=== PATIENT | female | born 1985 | race Caucasian/White ===

== ENCOUNTER → 2020-07-05 10:00 | Outpatient (CLI) | payer SELFPAY ==
[2020-07-05 08:49] VITALS: BMI 23.4
[2020-07-05 10:18] LABS: Absolute Lymphocyte Count 1.49 X10^3/uL (0.83-4.51); Basophil# 0.07 X10^3/uL; Basophil% 0.7 % (0-1); Eosinophil# 0.05 X10^3/uL; Eosinophils% 0.5 % (0-5); Hematocrit 40.5 % (37-47); Hemoglobin 13.4 g/dL (12.0-15.0); Lymphocyte # 1.49 X10^3/ul (4.0); Lymphocyte % 14.4 % (19-41); Mean Corp Hgb Conc 33.1 g/dL (32-36); Mean Corpuscular Volume 90.6 fL (81-99); Mean Platelet Vol. 8.5 fl (6.2-12.0); Monocyte# 0.68 X10^3/uL; Monocyte% 6.6 % (0-10); NRBC Flagged by Analyzer 0 % (0-5); Neutrophil # 8.02 X10^3/uL (2.7-7.7); Neutrophil % 77.4 % (47-70); Platelet Count 371 K/mm3 (150-450); RBC Distribution Width CV 12.7 % (11.6-14.6); RBC Distribution Width SD 41.8 fl (35.1-43.9); Red Blood Count 4.47 M/mm3 (4.2-5.4); White Blood Count 10.4 K/mm3 (4.4-11.0)
[2020-07-05 11:22] LABS: HIV - WCH Non-Reactive (Nonreactive); Hepatitis B Surface Antigen Non-Reactive (Nonreactive); Hepatitis C Antibody Non-Reactive (Nonreactive); Rubella IgG Reactive (Nonreactive)
[2020-07-05 18:49] LABS: Amphetamine Urine VISTA NEGATIVE (<1000 ng/mL); Barbiturate Urine VISTA NEGATIVE (< 200 ng/mL); Benzodiazepine Urine VISTA NEGATIVE (< 200 ng/mL); Cocaine Urine VISTA NEGATIVE (< 300 ng/mL); Ecstacy Urine VISTA NEGATIVE (< 500 ng/mL); Methadone Urine VISTA NEGATIVE (< 300 ng/mL); PCP Urine VISTA NEGATIVE (< 25 ng/mL); THC Urine VISTA NEGATIVE (< 50 ng/mL); Vista UDS pH Range 6
[2020-07-09 08:08] LABS: Chlamydia By Nucleic Acid AMP Negative (Negative)
[2020-07-09 11:13] LABS: Gonococcus By Nucleic Acid AMP Negative (Negative)
[2020-07-10 16:28] LABS: HPV APTIMA, High Risk Negative (Negative)
[2020-07-11 02:38] LABS: Rapid Plasmin Reagin (RPR) NONREACTIVE (NONREACTIVE)
== END ==
PROVIDERS: Referring Provider Obstetrics & Gynecology; Visit Provider Obstetrics & Gynecology
DX: O09.90 Supervision of high risk pregnancy, unspecified, unspecified trimester (principal); Z12.4 Encounter for screening for malignant neoplasm of cervix
CPT/HCPCS: 36415; 80307; 85025; 86592; 86703; 86762; 86803; 86850; 86900; 86901; 87086; 87088; 87340; 87491; 87591; 87624; 88175; G0145

== ENCOUNTER → 2020-09-20 07:41 | Outpatient (CLI) | payer SELFPAY ==
[2020-08-09 09:19] VITALS: BMI 24.0
[2020-08-30 09:51] VITALS: BMI 24.4
--- NOTE | 2020-09-20 08:13 | US_ITS ---
STUDY: SECOND AND THIRD TRIMESTER OBSTETRICAL ULTRASOUND REASON FOR EXAM: Female, 35 years old anatomy LMP: 04/26/2020. TECHNIQUE: Transabdominal TECHNICAL QUALITY: Adequate. PRIOR ULTRASOUND: None. FINDINGS: There is a single intrauterine fetus. The fetus is in a cephalic presentation. There is demonstrated cardiac activity with a heart rate of 140 bpm. There is a normal amniotic fluid volume. The largest amniotic fluid pocket measures 6.13 cm. The amniotic fluid index (MICHAEL) is within normal limits. The placenta is anterior in location and is not low lying. There are Grade 0 placental changes. The cervix measures 3.54 cm in length. The adnexal regions are not visualized. BIOMETRY: BPD: 4.7 cm: 20 weeks, 1 days HC: 17.77 cm: 20 weeks, 1 days AC: 16.08 cm: 21 weeks, 1 days FL: 3.35 cm: 20 weeks, 3 days CI: 74% FL/BPD: 71% FL/HC: FL/AC: 21% HC/AC: 1.11 age by current US: 20 weeks, 2 days. ZACH by current US: 02/05/2021. Estimated weight: 379 grams, +/- 57 grams, 36 %. Age by LMP: 21 weeks, 0 days. ZACH by LMP: 01/31/2021. ANATOMY: Gender: Male Cranium: Normal lateral ventricles. Normal choroid plexus. Normal cerebellum. Normal cisterna magna. Normal face, nose and lips. Chest: Normal 4-chamber heart. Abdomen/Pelvis: Normal diaphragm. Normal stomach. Normal abdominal wall. Normal cord insertion. Normal 3 vessel cord. Normal kidneys. Normal bladder. Spine: Normal cervical spine. Normal thoracic spine. Normal lumbar spine. Normal sacrum. Extremities: Normal bilateral upper extremities. Normal bilateral lower extremities. US/OB Anatomy Scan IMPRESSION: Single live intrauterine gestation with mean gestational age of 20 weeks and 2 days. Electronically Signed: Moe Mallory MD at 12:30 EST , Service support ,
== END ==
PROVIDERS: Referring Provider Obstetrics & Gynecology; Visit Provider Obstetrics & Gynecology
DX: O09.90 Supervision of high risk pregnancy, unspecified, unspecified trimester (principal); Z3A.21 21 weeks gestation of pregnancy
CPT/HCPCS: 76805

== ENCOUNTER → 2020-10-25 10:34 | Outpatient (CLI) | payer SELFPAY ==
[2020-10-25 10:02] VITALS: BMI 25.7
[2020-10-25 11:20] LABS: Absolute Lymphocyte Count 1.61 X10^3/uL (0.83-4.51); Absolute Neutrophil Count 8.2 X10^3/uL (2.0-7.7); Basophil# 0.06 X10^3/uL; Basophil% 0.6 % (0-1); Eosinophil# 0.08 X10^3/uL; Eosinophils% 0.8 % (0-5); Hematocrit 36.9 % (37-47); Hemoglobin 12.1 g/dL (12.0-15.0); Lymphocyte # 1.61 X10^3/ul (4.0); Lymphocyte % 15.2 % (19-41); Mean Corp Hgb Conc 32.8 g/dL (32-36); Mean Corpuscular Volume 91.6 fL (81-99); Mean Platelet Vol. 8.6 fl (6.2-12.0); Monocyte# 0.63 X10^3/uL; NRBC Flagged by Analyzer 0 % (0-5); Neutrophil # 8.15 X10^3/uL (2.7-7.7); Neutrophil % 76.9 % (47-70); Platelet Count 319 K/mm3 (150-450); RBC Distribution Width CV 12.3 % (11.6-14.6); RBC Distribution Width SD 40.9 fl (35.1-43.9); Red Blood Count 4.03 M/mm3 (4.2-5.4); White Blood Count 10.6 K/mm3 (4.4-11.0)
[2020-10-25 11:29] LABS: Glucose Challenge Gest 1H 50g 93 mg/dL (70-140)
== END ==
PROVIDERS: Referring Provider Obstetrics & Gynecology; Visit Provider Obstetrics & Gynecology
DX: O09.90 Supervision of high risk pregnancy, unspecified, unspecified trimester (principal); Z3A.00 Weeks of gestation of pregnancy not specified
CPT/HCPCS: 36415; 82950; 85025

== ENCOUNTER → 2021-01-03 10:19 | Outpatient (CLI) | payer SELFPAY ==
[2021-01-03 09:41] VITALS: BMI 26.8
== END ==
PROVIDERS: Referring Provider Obstetrics & Gynecology; Visit Provider Obstetrics & Gynecology
DX: O09.90 Supervision of high risk pregnancy, unspecified, unspecified trimester (principal); Z3A.00 Weeks of gestation of pregnancy not specified
CPT/HCPCS: 87081

== ENCOUNTER 2021-01-18 23:18 | Inpatient (IN) | payer SELFPAY ==
[2020-07-05 08:49] VITALS: BMI 23.4
[2021-01-17 09:22] VITALS: BMI 26.8
[2021-01-18 23:23] VITALS: BMI 27.6
[2021-01-18 23:27] VITALS: BP 151/63; PULSE 85; TEMP 37.2; O2SAT 100
[2021-01-18] MEDS: Lactated Ringers 500 ML 999 ML IV (23:33)
[2021-01-18 23:44] LABS: Absolute Lymphocyte Count 2.62 X10^3/uL (0.83-4.51); Absolute Neutrophil Count 11.8 X10^3/uL (2.0-7.7); Basophil# 0.07 X10^3/uL; Basophil% 0.4 % (0-1); Eosinophil# 0.08 X10^3/uL; Eosinophils% 0.5 % (0-5); Hematocrit 35.8 % (37-47); Hemoglobin 11.8 g/dL (12.0-15.0); Lymphocyte # 2.62 X10^3/ul (0.83-4.51); Lymphocyte % 16.7 % (19-41); Mean Platelet Vol. 9.4 fl (6.2-12.0); Monocyte# 1.02 X10^3/uL; Monocyte% 6.5 % (0-10); NRBC Flagged by Analyzer 0 % (0-5); Neutrophil # 11.76 X10^3/uL (2.7-7.7); Neutrophil % 75.1 % (47-70); Platelet Count 334 K/mm3 (150-450); RBC Distribution Width CV 12.7 % (11.6-14.6); RBC Distribution Width SD 38.7 fl (35.1-43.9); Red Blood Count 4.21 M/mm3 (4.2-5.4); White Blood Count 15.7 K/mm3 (4.4-11.0)
[2021-01-19] VITALS (16 sets, daily range): BP systolic 98–126; BP diastolic 54–75; PULSE 68–91; RESP 14–18; TEMP 36.4–37.1; O2SAT 97–99
[2021-01-19] MEDS: Oxytocin 30 units/NS 500 ml 30 UNITS/500 ML IV.SOLN 334 UNITS IV (00:04)
--- NOTE | 2021-01-19 00:22 | HP.PCM.OB_ITS ---
HPI - General General Date of Admission: 01/18/21 HPI Narrative MARELY JUAN, is a 35 F G2, P1 at 38 weeks 2 days who presents in active labor Maternal Data Information ZACH Calculator 2 Estimated Delivery Date Method Current WG Current Estimate 01/31/21 LMP (Certain) 38w 2d Other Estimates 01/31/21 Ultrasound #1 38w 2d PFSH PFSH Home Medications omega-3 fatty acids 500 mg PO DAILY 03/26/16 [History Last Taken 03/26/16 08:00 1] vit,[id number] 1 tab PO DAILY 03/26/16 [History Last Taken 03/26/16 08:00 1] Allergy/AdvReac Type Severity Reaction Status Date / Time No Known Allergies Allergy Verified 01/18/21 23:34 Family History Father Myocardial infarction Surgical History H/O wisdom tooth extraction Social History adopted: No household members: family housing: house number of children: 1 current occupational status: employed pets and animals: No Smoking Status: Never smoker second hand exposure: No alcohol intake: current alcohol intake frequency: holidays/special occasions only substance use type: does not use seatbelt use: always do you feel safe at home: Yes additional social history: - Abhay History 2 Elective abortions Hx Para 1 Spontaneous abortions Hx # Term Pregnancies Ectopic pregnancies Hx # Pregnancies Multiple births # of living children 1 Past Pregnancies Del. Date Name GA/Weeks Outcome Route Bth Weight Infant Gen Labor Lgth Anesthesia Del Locatn Provider FOB 03/26/16 Cait 40 live - full term 6lbs 12oz Female 6 h ours epidural WC RR Delivery Date: 03/26/16 Mely Naidu Visit Details Expected Delivery Route/Plan Labor Preferences- labor support person: Abhay labor intervention preferences: prefers minimal intervention pain management options preferred: prefers minimal intervention, but open to epidural, had epi last just wants not as dense. cut cord/dad catch: yes : yes PP control planned: pill probably discussed possible routes of delivery and associated risks: [] special requests: [] Plans flu vaccine:given tdap vaccine: declines rhogam: na LARC form signed: declined movement and labor precautions reviewed. Problem list reviewed and updated with the most current plan of care details and appropriate orders placed. Relevant counseling for the gestational age provided. Continue routine care and follow up unless otherwise noted in visit notes/problem list details OB Flowsheet Initial Weight: 145 lb Date -?-?-?-?-?-?-?-?-?-?-?-?- EGA Weight BP Urine Prot -?-?-?-?-?-?-?-?-?-?-?-?- Glucose FHR FuHt Pres Dilation -?-?-?-?-?-?-?-?-?-?-?-?- Effaced St Visit Note 07/05/20 -?-?-?-?-?-?-?-?-?-?-?-?- 10w 0d 145 lb 2 oz (+2 oz) 120/80 -?-?-?-?-?-?-?-?-?-?-?-?- 175 -?-?-?-?-?-?-?-?-?-?-?-?- GP - CRL 30mm co nsistent with LMP. 08/09/20 -?-?-?-?-?-?-?-?-?-?-?-?- 15w 0d 149 lb (+4 lb) 122/76 Negative -?-?-?-?-?-?-?-?-?-?-?-?- Negative 160 -?-?-?-?-?-?-?-?-?-?-?-?- SM- no vb crampi alysa, moving into a new house. 08/30/20 -?-?-?-?-?-?-?-?-?-?-?-?- 18w 0d 151 lb 6 oz (+6 lb 6 oz) 112/70 Negative -?-?-?-?-?-?-?-?-?-?-?-?- Negative 150 -?-?-?-?-?-?-?-?-?-?-?-?- GP - no cramping , VB, DFM. Scheduling anatomy scan to coordinate with 's work schedule. 10/25/20 -?-?-?-?-?-?-?-?-?-?-?-?- 26w 0d 159 lb 6 oz (+14 lb 6 oz) 120/72 Negative -?-?-?-?-?-?-?-?-?-?-?--?- Negative 140 26 -?-?-?-?-?-?-?-?-?-?-?-?- GP - no ctx, LOF , VB, DFM. Anatomy nl. 11/22/20 -?-?-?-?-?-?-?-?-?-?-?-?- 30w 0d 162 lb (+17 lb) Negative -?-?-?-?-?-?-?-?-?-?-?-?- Negative 150 30 -?-?-?-?-?-?-?-?-?-?-?-?- GP - no LOF, VB, DFM, ctx. Discussed compression socks for varicose veins. Remodeling her house - getting bren installed this weekend. 12/06/20 -?-?-?-?-?-?-?-?-?-?-?-?- 32w 0d 164 lb (+19 lb) 110/80 Negative -?-?-?-?-?-?-?-?-?-?-?-?- Negative 145 32 Cephalic -?-?-?-?-?-?-?-?-?-?-?-?- SM- no vb lof go od fm no regular ctx discussed labor preferences 12/20/20 -?-?-?-?-?-?-?-?-?-?-?-?- 34w 0d 166 lb 2 oz (+21 lb 2 oz) 110/72 Negative -?-?-?-?-?-?-?-?-?-?-?-?- Negative 135 34 Cephalic -?-?-?-?-?-?-?-?-?-?-?-?- GP - no LOF, VB, dFM, ctx. Discussed growth for AMA at visit last week - declines growth unless measuring inappropriately 01/03/21 -?-?-?-?-?-?-?-?-?-?-?-?- 36w 0d 169 lb 2 oz (+24 lb 2 oz) 120/70 Negative -?-?-?-?-?-?-?-?-?-?-?-?- Negative 140 36 Cephalic 4 -?-?-?-?-?-?-?-?-?-?-?-?- 60 -2 GP - no LO F, VB, dFM, ctx. 4cm on exam - was 4cm from 36w last as well. Not having regular ctx. 01/10/21 -?-?-?-?-?-?-?-?-?-?-?-?- 37w 0d 169 lb (+24 lb) 122/90 -?-?-?-?-?-?-?-?-?-?-?-?- 140 37 Cephalic 4 -?-?-?-?-?-?-?-?-?-?-?-?- 70 -1 SM- no vb lof good fm no regular ctx 01/17/21 -?-?-?-?-?-?-?-?-?-?-?-?- 38w 0d 171 lb 4 oz (+26 lb 4 oz) 120/80 Negative -?-?-?-?-?-?-?-?-?-?-?-?- Negative 130 38 Cephalic 5 -?-?-?-?-?-?-?-?-?-?-?-?- 80 -1 GP - no LO F, VB, DFM, ctx. Small amount of cervical change. Declines me mbrane sweeping. 01/18/21 -?-?-?-?-?-?-?-?-?-?-?-?- 38w 1d 171 lb 9.6 oz (+26 lb 9.6 oz) 151/63 126/75 -?-?-?-?-?-?-?-?-?-?-?-?- -?-?-?-?-?-?-?-?-?-?-?-?- NST FHR Rate Baby A Baseline: 120 Variability:: Moderate Accelerations:: 15 x 15 Decelerations:: Variable FHR Category:: Category II Uterine Activity:: q2-3 ROS Eyes Eyes: Reports systems reviewed and no addt'l complaints, except as documented ENT HEENT: Reports systems reviewed and no addt'l complaints, except as documented Cardiovascular Cardiovascular: Reports systems reviewed and no addt'l complaints, except as documented Respiratory/Chest Respiratory/Chest: Reports systems reviewed and no addt'l complaints, except as documented Gastrointestinal Gastrointestinal: Reports systems reviewed and no addt'l complaints, except as documented Genitourinary Genitourinary: Reports systems reviewed and no addt'l complaints, except as documented Musculoskeletal Musculoskeletal: Reports systems reviewed and no addt'l complaints, except as documented Integumentary Integumentary: Reports systems reviewed and no addt'l complaints, except as documented Neurologic Neurologic: Reports systems reviewed and no addt'l complaints, except as documented Psychiatric Psychiatric: Reports systems reviewed and no addt'l complaints, except as documented Endocrine Endocrinology: Reports systems reviewed and no addt'l complaints, except as documented Hematologic/Lymphatic Hematologic/Lymphatic: Reports systems reviewed and no addt'l complaints, except as documented Allergic/Immunologic Allergic/Immunologic: Reports systems reviewed and no addt'l complaints, except as documented Vital Signs Vital Signs Vital Signs: 01/18/21 23:27 Temperature 99.0 F Temperature Source Temporal Pulse Rate 85 Blood Pressure 151/63 H BP Systolic 151 BP Diastolic 63 Pulse Ox 100 Weight Weight: 171 lb 9.6 oz Body Mass Index (BMI) 27.6 Physical Exam Const alert, oriented x3, no apparent distress, average body habitus, healthy appearing and well nourished HEENT normocephalic and moist oral mucous membranes Head and Scalp: atraumatic Eyes PERRL and EOMs intact bilaterally Neck full ROM Resp normal respiratory effort, no retractions and no use of accessory muscles Cardio regular rate and regular rhythm GI soft to palpation, non-tender and non-distended external exam normal and appearance of the vagina normal Manual OB Exam: dilated 8, effaced 80 and station 0 Extremity normal to inspection and full ROM Skin no rashes or lesions noted Neuro no focal motor deficits and no sensory deficits noted Psych mental status grossly normal, affect normal, speech normal and activity/motor behavior normal Labs Labs Labs: Blood Type A POSITIVE Antibody Screen NEGATIVE Hct 35.8 % (37-47) L Hgb 11.8 g/dL (12.0-15.0) L Obstetrics US Rubella IgG Antibody Reactive (Nonreactive) Hep Bs Antigen Non-Reactive (Nonreactive) Neisseria gonorrhoeae DNA (KENNA) Negative (Negative) HIV 1&2 Antibody Non-Reactive (Nonreactive) Glucose 1 Hr 50 gm 93 mg/dL (70-140) Rhogam given: No Assessment & Plan (1) Active labor at term: PLAN: Patient presents IAL, plan expectant management for , pitocin/AROM PRN if needed. Pain management: Plan natural. GBS negative. Management of any complications: none I have reviewed the [facility] and made any clinically relevant updates. (2) ASCUS of cervix with negative high risk HPV: COMMENT: needs repeat pap 06/2023 (3) Supervision of high risk , antepartum: COMMENT: PRR ZACH 01/31/21 [place]! PC: Cait Spouse: Abhay (4) : QUALIFIERS: Weeks of gestation: 38 weeks Qualified Code(s): Z3A.38 - 38 weeks gestation of COMMENT: declines genetic and carrier, GBS negative (5) AMA (advanced maternal age) multigravida 35+: QUALIFIERS: Trimester: third trimester Qualified Code(s): O09.523 - Supervision of elderly multigravida, third trimester COMMENT: genetic screening discussed and declined. Discussed growth at 36 weeks-patient declines unless measuring inappropriately
--- NOTE | 2021-01-19 00:25 | EX.PCM.OBRPT ---
Assessment & Plan (1) Active labor at term: (2) ASCUS of cervix with negative high risk HPV: COMMENT: needs repeat pap 06/2023 (3) Supervision of high risk , antepartum: COMMENT: PRR ZACH 01/31/21 [place]! PC: Cait Spouse: Abhay (4) : QUALIFIERS: Weeks of gestation: 38 weeks Qualified Code(s): Z3A.38 - 38 weeks gestation of COMMENT: declines genetic and carrier, GBS negative (5) AMA (advanced maternal age) multigravida 35+: QUALIFIERS: Trimester: third trimester Qualified Code(s): O09.523 - Supervision of elderly multigravida, third trimester COMMENT: genetic screening discussed and declined. Discussed growth at 36 weeks-patient declines unless measuring inappropriately (6) Spontaneous vaginal delivery: Maternal Data Information ZACH Calculator Estimated Delivery Date Method Current WG Current Estimate 01/31/21 LMP (Certain) 38w 2d Other Estimates 01/31/21 Ultrasound #1 38w 2d Vaginal Delivery Maternal Presentation Maternal Presentation: Active Labor Maternal Presentation: 35-year-old G2, P1 at 38 weeks admitted in active labor. Patient made rapid cervical change to complete dilation within 1 hour of admission without augmentation. Operative Information Date of Procedure: 01/19/21 Pre-Operative Diagnosis: Term , active labor Post-Operative Diagnosis: Same Surgery / Procedure Performed: Spontaneous Vaginal Delivery Type of Anesthesia: Local with 1% Lidocaine Estimated Blood Loss: 200 Findings Description of Procedure: Patient began pushing and delivered the head in the SYDNI presentation. The head was delivered atraumatically and no nuchal cord was noted. The anterior and posterior shoulders delivered without complication followed by the rest of the infant and the infant was placed on the maternal abdomen. Delayed cord clamping was employed for approximately 60 seconds. Cord was clamped and cut and gentle traction was applied to the cord and the placenta delivered spontaneously immediately following it was noted to be intact with three-vessel cord. The perineum and vagina were inspected and a midline first-degree perineal laceration was noted and repaired in the standard fashion using 3-0 Vicryl rapide suture. EBL was 200 cc. Patient and infant tolerated delivery well. Presentation: Vertex and SYDNI Amniotic Membrane Rupture Type: Spontaneous Amniotic Fluid Description: Clear Placental Delivery Description: Spontaneous Placenta Disposition: [facility] Cord Vessel Description: 3 Vessels Cord Entanglement: None A Gender: Male Delayed Cord Clamping: Yes Post Vaginal Delivery Medications Given After Delivery: IV Pitocin Episiotomy Description: None Laceration: Midline, Perineal Extension/lac and 1st degree Complication Complications: None Procedures Urinary/Genital [id number]: [id number] Vaginal Delivery [facility]
--- NOTE | 2021-01-19 00:33 | PCM.DC ---
Discharge Instructions Diet Discharge Diet: No restrictions Activity Discharge Activity: Return to Normal Activity, May Not Drive (while taking narcotic pain medications.) and May Shower May resume sexual activity in: 4-6 weeks Dressing / Incision Call your doctor if your incision/area has: Continuous Slow Oozing, Sudden Increased Bleeding, Increased Pain/ Swelling, Increased Redness and Foul Smelling Discharge Follow Up Care When: Call to make an appointment with your doctor in 6 weeks. If you had elevated Blood Pressure or 4th degree laceration you will need to be seen in 2 weeks. Test Results: Test results from this visit will be discussed in further detail at your follow-up appointment, if applicable. Discharge Plan Admission Admit Date/Time: 01/18/21 23:18 Primary Reason for Your Visit: Active labor Attending Provider: Anitra Connors Instructions Patient Instructions: After a Vaginal Discharge Orders/Prescriptions Prescriptions: No Action omega-3 fatty acids 500 MG capsule 500 mg PO DAILY RF: 0 vit,[id number] 1 TABLET tablet 1 tab PO DAILY RF: 0 Referrals / Follow Up: YVONNE FRENCH [Other]
[2021-01-19] MEDS: Ibuprofen 600 MG Tablet PO ×2 (00:47→14:35)
[2021-01-19] MEDS: 0.9% Saline Lock 10 ML Syringe IV (02:55)
--- NOTE | 2021-01-19 05:16 | NURSING ---
pt denies feeling dizzy or lightheaded. will continue to monitor.
[2021-01-20 00:45] VITALS: BP 98/65; PULSE 63; RESP 18; TEMP 36.5
--- NOTE | 2021-01-20 07:58 | PCM.PN.OB ---
Subjective Subjective Patient doing well without complaints. Tolerating PO. Ambulating and voiding without difficulty. Breast feeding well. Denies chest pain, shortness of breath, calf pain/swelling, fevers, chills, lightheadedness. Objective Data Objective Data Vital Signs: Vital Signs Temp Pulse Resp BP Pulse Ox 97.7 F L 63 18 98/65 98 01/20/21 00:45 01/20/21 00:45 01/20/21 00:45 01/20/21 00:45 01/19/21 07:50 Oxygen Delivery Method Room Air Weight: 171 lb 9.6 oz Body Mass Index (BMI) 27.6 Intake & Output: Intake and Output for Last 24 Hours 01/18/21 01/19/21 01/20/21 23:59 23:59 23:59 Intake Total 1949.55 / 1949.55 Output Total 900 / 900 Balance 1049.55 / 1049.55 Lab / Micro Data Result Diagrams: 01/18/21 23:32 ROS Constitutional Constitutional: Denies fever(s) Cardiovascular Cardiovascular: Denies chest pain, dyspnea or lightheadedness Gastrointestinal Gastrointestinal: Reports abdominal pain; Denies constipation or diarrhea Neurologic Neurologic: Denies dizziness or headache(s) Physical Exam Const alert, oriented x3, no apparent distress, average body habitus, healthy appearing and well nourished HEENT normocephalic Head and Scalp: atraumatic Eyes PERRL and EOMs intact bilaterally Neck full ROM Lymph Lymphatic: no lymphadenopathy noted Resp normal respiratory effort, no retractions and no use of accessory muscles Cardio regular rate GI soft to palpation, non-tender and non-distended Palpation: other Other Details: fundus firm Extremity normal to inspection and no clubbing, cyanosis or edema Skin no rashes or lesions noted Neuro no focal motor deficits and no sensory deficits noted Psych mental status grossly normal, affect normal and speech normal Assessment & Plan (1) Spontaneous vaginal delivery: PLAN: s/p PPD # 1 1. routine post delivery care 2. breast feeding- support given 3. rh positive 4. rubella immune
[2021-01-20 08:00] VITALS: BP 96/63; PULSE 76; RESP 18; TEMP 36.6
== END 2021-01-20 11:45 | disposition home or self-care (01) | DRG 807 ==
PROVIDERS: Admitting Provider Obstetrics & Gynecology; Visit Provider Obstetrics & Gynecology
DX: O70.0 First degree perineal laceration during delivery (principal); Z37.0 Single live birth; Z3A.38 38 weeks gestation of pregnancy; Z82.49 Family history of ischemic heart disease and other diseases of the circulatory system
CPT/HCPCS: 59025; 59050; 85025; 86850; 86900; 86901; 99218; J7120; A4216; G0378